=== PATIENT | female | born 1995 | race Caucasian/White ===

== ENCOUNTER 2019-07-17 17:47 | Emergency (ER) | payer OTHER ==
[~2019-07-17] VITALS: Ht 157.5 cm; Wt 52.9 kg
[~2019-07-17 17:47] MED LIST: LORA-441 PO
[2019-07-17 18:15] VITALS: Ht 157.5 cm; Wt 52.9 kg
[2019-07-17 20:15] VITALS: BP 109/72; PULSE 65; RESP 17
== END 2019-07-17 20:15 | disposition home or self-care (01) ==
LOC: FTE 17:47
DX: F41.9 Anxiety disorder, unspecified (principal)
CPT/HCPCS: 93005; Z7502; 99283